=== PATIENT | male | born 1970 | race Caucasian/White ===

== ENCOUNTER 2020-11-29 10:31 | Day surgery (SDC) | payer OTHER ==
[~2020-11-29 10:31] MED LIST: LIDOCAINE-MPF 2% 5 ML VIAL ONE; MIDAZOLAM 2 MG/2 ML VIAL ONE; PROPOFOL 500 MG/50 ML 500 MG/50 ML VIAL ONE; fentaNYL 100 MCG/2 ML VIAL ONE
[2020-11-29] MEDS ORDERED: LACTATED RINGERS 1,000 ML IV ONE ×3 (10:58→13:09)
[2020-11-29] MEDS ORDERED: LIDOCAINE 2%-EPI 1:100000 20 ML MDV ONE (11:52)
[2020-11-29] MEDS ORDERED: BUPIVACAINE 0.25% PF 30 ML VIAL ONE (11:52)
[2020-11-29] MEDS ORDERED: METOCLOPRAMIDE 10 MG/2 ML VIAL IVP PRN (12:02)
[2020-11-29] MEDS ORDERED: ATROPINE ABBOJECT 1 MG/10 ML SYRINGE IVP PRN (12:02)
[2020-11-29] MEDS ORDERED: NALOXONE 0.4 MG/ML VIAL IVP PRN (12:02)
[2020-11-29] MEDS ORDERED: ePHEDrine 50 MG/ML VIAL IVP PRN (12:02)
[2020-11-29] MEDS ORDERED: fentaNYL 100 MCG/2 ML VIAL IVP PRN (12:02)
[2020-11-29] MEDS ORDERED: ONDANSETRON 4 MG/2 ML VIAL IVP PRN (12:02)
[2020-11-29] MEDS ORDERED: MORPHINE 2 MG/ML CARPUJECT IVP PRN (12:02)
[2020-11-29] MEDS ORDERED: HYDROmorphone 0.5 MG/0.5 ML SYRINGE IVP PRN (12:02)
--- NOTE | 2020-11-29 12:02 | ANESTHESIA ---
Pre-Anesthesia VS, & Labs - Diagnosis lipoma - Procedure excision of left shoulder lipoma Vital Signs: Temp Pulse Resp BP Pulse Ox 36.2 C L 65 16 136/95 H 97 11/29/20 10:45 11/29/20 10:45 11/29/20 10:45 11/29/20 10:45 11/29/20 10:45 Height: 5 ft 11 in Weight (kg): 88.5 kg Body Mass Index: 27.2 BMI Classification: Overweight - NPO >8 hours Home Medications and Allergies Home Medications: Ambulatory Orders Cyclobenzaprine HCl 5 mg PO TID PRN 11/21/20 Cyclobenzaprine HCl 5 mg PO TID PRN 11/21/20 Allergies/Adverse Reactions: Allergies Allergy/AdvReac Type Severity Reaction Status Date / Time No Known Drug Allergies Allergy Verified 11/21/20 13:07 Anes History & Medical History - Medical History Cardiovascular: reports: None Pulmonary: reports: None Urinary: reports: None Musculoskeletal: reports: None Endocrine/Autoimmune: reports: None Skin: reports: None - Surgical History General: reports: Colonoscopy, Other Exam General: Alert, Oriented x3, Cooperative Dental: WNL Mouth Openin Fingerbreadth Neck Mobility: Normal Mallampati classification: I Respiratory: Lungs clear Cardiovascular: Regular rate Plan Anesthesia Type: Total IV Consent for Procedure(s) Verified and Reviewed: Yes Code Status: Attempt Resuscitation ASA classification: 1-Healthy patient Is this case an emergency?: No
[2020-11-29] MEDS ORDERED: LIDOCAINE 1% 50 ML MDV ONE (12:30)
[2020-11-29] MEDS ORDERED: ePHEDrine 50 MG/ML VIAL IVP ONE (12:34)
[2020-11-29] MEDS ORDERED: BUPIVACAINE 0.25% PF 30 ML VIAL SUBQ ONE ×3 (12:34)
[2020-11-29] MEDS ORDERED: LIDOCAINE 1% 50 ML MDV SUBQ ONE ×3 (12:34)
[2020-11-29] MEDS ORDERED: LACTATED RINGERS 1,000 ML IV SCH (13:00)
[2020-11-29] MEDS ORDERED: HYDROcod/ACETAM 5/325 MG TABLET PO PRN (13:22)
--- NOTE | 2020-11-29 13:26 | OPERATIVE REPORT ---
Operative Report - General Procedure Date: 11/29/20 Planned Procedure: excision 3 x 4 cm lipoma left posterior shoulder Pre-Op Diagnosis: left posterior shoulder lipoma Procedure Performed: excision 3 cm lipoma left posterior shoulder Post Op Diagnosis: left posterior shoulder lipoma - Procedure Note Primary Surgeon: chelsie diez md Anesthesia Technique: Local, MAC Pathology: benign / not sent Estimated Blood Loss (mL): 0 Drain/Tube Type: Other (none) Indications: painful growing mass Findings: as above Complications: none - Other Other Information/Narrative: The patient was properly identified brought to the operating room and placed in supine position. Monitored anesthesia care was given. He was carefully repositioned modified right lateral decubitus. He was prepped and draped in a sterile fashion. Antibiotics were not given. A vertical up-and-down incision was made over the palpable lipoma. Dissection proceeded with cutting current ca utery. The lipoma and surrounding scar tissue was removed in its entirety with gentle retraction and cautery. Hemostasis was assured. Intermediate repair was then performed. Deep dermis was closed with interrupted 2-0 Vicryl suture. Buried interrupted subdermal 3-0 Vicryl sutures were then placed. Skin was closed with a running 4-0 Monocryl subcuticular suture. Steri-Strips and dressing were applied. He tolerated the procedure well. He was awakened and brought to recovery in good condition.
[2020-11-29 13:31] VITALS: BP 120/78
== END 2020-11-29 10:32 | disposition home or self-care (01) ==
LOC: SDS 10:31
PROVIDERS: ATTEND Surgery
DX: D17.39 Benign lipomatous neoplasm of skin and subcutaneous tissue of other sites (principal)
CPT/HCPCS: 23071; J7120